=== PATIENT | male | born 2000 | race Caucasian/White ===

== ENCOUNTER 2022-12-30 22:48 | Inpatient (IN) ==
[2022-12-30 23:26] LABS: Appearance Urine Clear (Clear); Bilirubin Urine Negative (Negative); Blood Urine Negative (Negative); Color Urine Yellow; Glucose Urine UA Negative (Negative); Ketones Urine Negative (Negative); Leukocyte Esterase Urine Negative (Negative); Nitrite Urine Negative (Negative); Protein Urine Negative (Negative); Specific Gravity Urine 1.013 (1.000-1.030); Urobilinogen Urine Negative (Negative)
--- NOTE | 2022-12-30 23:29 | Emergency Department Note ---
Impression & Plan Suicidal ideation Admit to 3 S. under 302 ED Provider Note NAME: IRAJ AYON AGE: 22 SEX: Male INFORMANT: Patient and his ED PROVIDER(S): Kayleigh Grier DO CHIEF COMPLAINT: Suicidal ideation PLAN: Disposition: Admit to 3 S. on a 302 MEDICAL DECISION MAKING: This is a 22-year-old male patient with a history of anxiety who presents to the emergency department with worsening suicidal thoughts. Patient describes that he has had suicidal ideation for some time but the depression and thoughts of suicide have worsened to the point today he became quite concerned because he envision going to a remote area to complete his suicide. The patient describes feeling overwhelmed and more depressed because of his physical health. He suffers from chronic chest pain/abdominal pain thought to be related to GERD. He was fired from his job 2 weeks ago because of his depression and missing too much work. He denies any drug or alcohol use. Patient gives a history of 1 previous inpatient psychiatric stay at [facility] for an overdose of Lexapro when he was 17 years old. Patient was medically cleared here in the emergency department and he was evaluated by the ED psychiatric medical case worker who is recommending inpatient psychiatric care. While the patient was here in the emergency department, he received an email stating that he needed to have a drug test performed in the next 24 hours for possible job opportunity and he would be scheduled for a job interview. Based on this email, the patient requested discharge from the emergency department. The medical case worker explained to the patient and his that we were still quite concerned about the patient's suicidality brought him here in the first place. In reviewing the patient's medical record in [facility], it seems that the patient had recently had an inpatient psychiatric stay on December 24 for anxiety and mentions suicidal ideation at that time. Patient made no mention of this inpatient psychiatric stay for another one at [facility] when I questioned him initially. He told me of the admission to [facility] at age 17 and stated that he currently does not have any counselors/therapists and does not see a psychiatrist. I felt the patient was not forthcoming with information and was somewhat manipulative. I went back to the room to discuss the situation with the patient and his . I explained that I was genuinely concerned for the patient's safety as they presented with such significant worry and concern over his worsening suicidal ideation. I feel that he does require inpatient psychiatric care. He states that the care he received at [facility] was not helpful. He told me that if he signs into the hospital again that he would just sign out in 72 hours. I believe the patient has multiple risk factors for suicide and requires further inpatient psychiatric evaluation and care. The ED psychiatric medical case worker petitioned a 302 and I signed off on it. Care/management discussed with: ED psychiatric medical case worker Triage Nursing notes: Reviewed and agree them. Vital Signs: reviewed and unremarkable Additional History obtained from: The is at the bedside Chronic Medical/Social Conditions affecting care: Recently unemployed because of absence from work Prior /Outside records reviewed: [facility] records from recent inpatient psychiatric stay and emergency department visits. Differential Diagnosis: Mood disorder, thought disorder, suicidal ideation HPI: 22 year old Male arrives for evaluation of suicidal ideation. Patient had worsening thoughts of suicide over the past month. He takes BuSpar for his anxiety. Tonight he was thinking about how he would go to a remote location to complete his suicide. He has a history of previous suicide attempt at age 17 by overdose. His paternal grandfather killed himself. PAST MEDICAL HISTORY: Anxiety, SOCIAL HISTORY: Lives with his and 3 children, he denies drug and alcohol use. Currently unemployed HOME MEDICATIONS: See list ALLERGIES: See list VITALS: See Below PHYSICAL EXAMINATION: HEENT: Head - normocephalic and atraumatic. Pupils are equal, round, and reactive to light. Extraocular eye muscles are intact, and sclera are anicteric. Nose - moist nasal mucosa without discharge. Mouth - moist buccal mucosa. Oropharynx is nonerythematous and there is no tonsillar exudate or edema noted. Neck: Supple; no cervical lymphadenopathy noted Heart: Regular rate and rhythm. There is a normal S1 and S2 with no murmurs, clicks, or gallops appreciated. Lungs: Clear to auscultation bilaterally with no wheezes, rales, or rhonchi. Abdomen: Soft, completely nontender, nondistended, with good bowel sounds. There are no palpable pulsatile masses or hepatosplenomegaly. There is no guarding, rigidity, or rebound noted. Extremities: No evidence of cyanosis, clubbing, or edema. There are easily palpable peripheral pulses. Skin: warm and dry with good turgor and no rashes. Psych: Patient has an extremely flat affect. He appears depressed. He admits to suicidal thoughts with no specific plan. He denies drug and alcohol use. ED course: The patient was evaluated in room A-5. A complete history and physical was performed. Laboratory studies were drawn as above. Patient was medically cleared. He was evaluated by the ED psychiatric medical case worker. Past Med/Surg History Social History Smoking Status: Current every day smoker Tobacco Type: E-cigarettes / Vaping Preferred Language: Kinyarwanda Communication Ability: Effective Activities Assistant Required: No Beliefs That Will Affect Care: None Feels Safe at Home: Yes Gender Identity: Male Assistive Devices: Glasses Allergies Allergies Allergy/AdvReac Type Severity Reaction Status Date / Time trazodone Allergy Swelling Verified 12/30/22 23:16 of Lip/Tongue/Throat fluoxetine AdvReac Confusion Verified 12/30/22 23:16 methylphenidate AdvReac twitching Verified 09/12/22 22:35 [From Concerta] Home Meds Home Medications Medication Instructions Recorded Confirmed buspirone 10 mg tablet 10 mg PO BID 12/30/22 12/30/22 Results & Data (ED) Vital Signs Vital Signs - 24 hr 12/30/22 22:50 Pulse Rate 71 Respiratory Rate 18 Respiratory Effort / Characteristics Non-Labored Respiratory Depth Normal Blood Pressure 122/84 Blood Pressure Mean 96 Pulse Oximetry 99 Oxygen Delivery Method Room Air Sepsis Recent Fever Within 48 Hours No Sepsis New/Unexplained Change in Mental Status No Sepsis Action Taken by Nursing No Action Required Laboratory Data 12/30/22 23:05 12/30/22 23:05 Lab Results 12/30/22 12/30/22 12/30/22 Range/Units 23:05 23:05 23:05 WBC 8.77 (4.8-10.8) K/ul RBC 5.12 (4.70-6.10) M/uL Hgb 14.8 (14.0-18.0) g/dl Hct 43.1 (42.0-52.0) % MCV 84.2 (80.0-100.0) fL MCH 28.9 (25.0-34.0) pg MCHC 34.3 (32.0-36.0) g/dL RDW Std Deviation 37.5 (36.4-46.3) fL RDW Coeff of Jack 12.5 (11.5-14.5) % Plt Count 230 (130-400) K/uL MPV 9.6 (9.4-12.4) fL Immature Gran % (Auto) 0.1 % Neut % (Auto) 45.1 % Lymph % (Auto) 44.8 % [place] % (Auto) 7.3 % Eos % (Auto) 2.2 % Baso % (Auto) 0.5 % Neut # (Auto) 3.96 (1.40-6.50) K/uL Lymph # (Auto) 3.93 H (1.20-3.40) K/uL [place] # (Auto) 0.64 H (0.11-0.59) K/uL Eos # (Auto) 0.19 (0.00-0.50) K/uL Baso # (Auto) 0.04 (0.00-0.20) K/uL Immature Gran # (Auto) 0.01 (0.01-0.20) K/uL Sodium 138 (136-145) mmol/L Potassium 4.1 (3.5-5.1) mmol/L Chloride 104 (98-107) mmol/L Carbon Dioxide 29 (21-32) mmol/L Anion Gap 5 (3-11) BUN 12 (6-23) mg/dl Creatinine 0.90 (0.6-1.4) mg/dl Est Cr Clr Drug Dosing 127.7 ml/min Est GFR ( Amer) 139.0 ml/min Est GFR (Non-Af Amer) 120.0 ml/min BUN/Creatinine Ratio 13.3 (10-20) Glucose 95 (70-99(Fasting)) mg/dl Calcium 9.9 (8.6-10.3) mg/dl Total Bilirubin 0.4 (0.2-1.0) mg/dl AST 16 (13-39) U/L ALT 9 (7-52) U/L Alkaline Phosphatase 68 (34-104) U/L Total Protein 7.5 (6.0-8.3) gm/dl Albumin 4.9 (3.4-5.0) gm/dl Globulin 2.6 (2.5-4.0) gm/dl Albumin/Globulin Ratio 1.9 (0.9-2) TSH 3.965 (0.300-4.500) uIu/ml Urine Color Urine Appearance (Clear) Urine pH (4.5-7.5) Ur Specific [place] (1.000-1.030) Urine Protein (Negative) Urine Glucose (UA) (Negative) Urine Ketones (Negative) Urine Blood (Negative) Urine Nitrite (Negative) Urine Bilirubin (Negative) Urine Urobilinogen (Negative) Ur Leukocyte Esterase (Negative) Salicylates < 3.0 L (3.0-30) mg/dl Urine Opiates Screen (Neg) Ur Methadone, Qual (Neg) Acetaminophen < 3 L (10-30) ug/ml Urine Barbiturates (Neg) Ur Phencyclidine (PCP) (Neg) U Amphetamin/Meth Scrn (Neg) MDMA (Ecstasy) Screen (Neg) U Benzodiazepines Scrn (Neg) Ur Cocaine Metabolite (Neg) U Marijuana (THC) Screen (Neg) Ethyl Alcohol mg/dL (<10.0) mg/dl SARS-CoV-2, RNA, NAAT (NEGATIVE) 12/30/22 12/30/22 12/30/22 Range/Units 23:05 23:05 23:05 WBC (4.8-10.8) K/ul RBC (4.70-6.10) M/uL Hgb (14.0-18.0) g/dl Hct (42.0-52.0) % MCV (80.0-100.0) fL MCH (25.0-34.0) pg MCHC (32.0-36.0) g/dL RDW Std Deviation (36.4-46.3) fL RDW Coeff of Jack (11.5-14.5) % Plt Count (130-400) K/uL MPV (9.4-12.4) fL Immature Gran % (Auto) % Neut % (Auto) % Lymph % (Auto) % [place] % (Auto) % Eos % (Auto) % Baso % (Auto) % Neut # (Auto) (1.40-6.50) K/uL Lymph # (Auto) (1.20-3.40) K/uL [place] # (Auto) (0.11-0.59) K/uL Eos # (Auto) (0.00-0.50) K/uL Baso # (Auto) (0.00-0.20) K/uL Immature Gran # (Auto) (0.01-0.20) K/uL Sodium (136-145) mmol/L Potassium (3.5-5.1) mmol/L Chloride (98-107) mmol/L Carbon Dioxide (21-32) mmol/L Anion Gap (3-11) BUN (6-23) mg/dl Creatinine (0.6-1.4) mg/dl Est Cr Clr Drug Dosing ml/min Est GFR ( Amer) ml/min Est GFR (Non-Af Amer) ml/min BUN/Creatinine Ratio (10-20) Glucose (70-99(Fasting)) mg/dl Calcium (8.6-10.3) mg/dl Total Bilirubin (0.2-1.0) mg/dl AST (13-39) U/L ALT (7-52) U/L Alkaline Phosphatase (34-104) U/L Total Protein (6.0-8.3) gm/dl Albumin (3.4-5.0) gm/dl Globulin (2.5-4.0) gm/dl Albumin/Globulin Ratio (0.9-2) TSH (0.300-4.500) uIu/ml Urine Color Yellow Urine Appearance Clear (Clear) Urine pH 7.0 (4.5-7.5) Ur Specific [place] 1.013 (1.000-1.030) Urine Protein Negative (Negative) Urine Glucose (UA) Negative (Negative) Urine Ketones Negative (Negative) Urine Blood Negative (Negative) Urine Nitrite Negative (Negative) Urine Bilirubin Negative (Negative) Urine Urobilinogen Negative (Negative) Ur Leukocyte Esterase Negative (Negative) Salicylates (3.0-30) mg/dl Urine Opiates Screen Neg (Neg) Ur Methadone, Qual Neg (Neg) Acetaminophen (10-30) ug/ml Urine Barbiturates Neg (Neg) Ur Phencyclidine (PCP) Neg (Neg) U Amphetamin/Meth Scrn Neg (Neg) MDMA (Ecstasy) Screen Neg (Neg) U Benzodiazepines Scrn Neg (Neg) Ur Cocaine Metabolite Neg (Neg) U Marijuana (THC) Screen Neg (Neg) Ethyl Alcohol mg/dL < 10.0 (<10.0) mg/dl SARS-CoV-2, RNA, NAAT (NEGATIVE) 10/15/23 Range/Units 23:05 WBC (4.8-10.8) K/ul RBC (4.70-6.10) M/uL Hgb (14.0-18.0) g/dl Hct (42.0-52.0) % MCV (80.0-100.0) fL MCH (25.0-34.0) pg MCHC (32.0-36.0) g/dL RDW Std Deviation (36.4-46.3) fL RDW Coeff of Jack (11.5-14.5) % Plt Count (130-400) K/uL MPV (9.4-12.4) fL Immature Gran % (Auto) % Neut % (Auto) % Lymph % (Auto) % [place] % (Auto) % Eos % (Auto) % Baso % (Auto) % Neut # (Auto) (1.40-6.50) K/uL Lymph # (Auto) (1.20-3.40) K/uL [place] # (Auto) (0.11-0.59) K/uL Eos # (Auto) (0.00-0.50) K/uL Baso # (Auto) (0.00-0.20) K/uL Immature Gran # (Auto) (0.01-0.20) K/uL Sodium (136-145) mmol/L Potassium (3.5-5.1) mmol/L Chloride (98-107) mmol/L Carbon Dioxide (21-32) mmol/L Anion Gap (3-11) BUN (6-23) mg/dl Creatinine (0.6-1.4) mg/dl Est Cr Clr Drug Dosing ml/min Est GFR ( Amer) ml/min Est GFR (Non-Af Amer) ml/min BUN/Creatinine Ratio (10-20) Glucose (70-99(Fasting)) mg/dl Calcium (8.6-10.3) mg/dl Total Bilirubin (0.2-1.0) mg/dl AST (13-39) U/L ALT (7-52) U/L Alkaline Phosphatase (34-104) U/L Total Protein (6.0-8.3) gm/dl Albumin (3.4-5.0) gm/dl Globulin (2.5-4.0) gm/dl Albumin/Globulin Ratio (0.9-2) TSH (0.300-4.500) uIu/ml Urine Color Urine Appearance (Clear) Urine pH (4.5-7.5) Ur Specific [place] (1.000-1.030) Urine Protein (Negative) Urine Glucose (UA) (Negative) Urine Ketones (Negative) Urine Blood (Negative) Urine Nitrite (Negative) Urine Bilirubin (Negative) Urine Urobilinogen (Negative) Ur Leukocyte Esterase (Negative) Salicylates (3.0-30) mg/dl Urine Opiates Screen (Neg) Ur Methadone, Qual (Neg) Acetaminophen (10-30) ug/ml Urine Barbiturates (Neg) Ur Phencyclidine (PCP) (Neg) U Amphetamin/Meth Scrn (Neg) MDMA (Ecstasy) Screen (Neg) U Benzodiazepines Scrn (Neg) Ur Cocaine Metabolite (Neg) U Marijuana (THC) Screen (Neg) Ethyl Alcohol mg/dL (<10.0) mg/dl SARS-CoV-2, RNA, NAAT NEGATIVE (NEGATIVE) Discharge Plan Visit Data Chief Complaint: Mental Health Evaluation Stated Complaint: MENTAL HEALTH CRISIS ED Provider: Kayleigh Grier Discharge Problem: Suicidal ideation Patient Disposition: Admitted As Inpatient Discharge Instructions Interventions: ED Discharge Assessment Last Done: 12/31/22 04:18
[2022-12-30 23:32] LABS: Basophils # (auto) 0.04 K/uL (0.00-0.20); Basophils % (auto) 0.5 %; Eosinophils # (auto) 0.19 K/uL (0.00-0.50); Eosinophils % (auto) 2.2 %; Hematocrit (blood only) 43.1 % (42.0-52.0); Hemoglobin 14.8 g/dl (14.0-18.0); Immature Granulocytes # (auto) 0.01 K/uL (0.01-0.20); Immature Granulocytes % (auto) 0.1 %; Lymphocytes # (auto) 3.93 K/uL (1.20-3.40); Lymphocytes % (auto) 44.8 %; Mean Corpuscular Hemoglobin 28.9 pg (25.0-34.0); Mean Corpuscular Hgb Conc 34.3 g/dL (32.0-36.0); Mean Corpuscular Volume 84.2 fL (80.0-100.0); Mean Platelet Volume 9.6 fL (9.4-12.4); Monocytes # (auto) 0.64 K/uL (0.11-0.59); Monocytes % (auto) 7.3 %; Neutrophils # (auto) 3.96 K/uL (1.40-6.50); Neutrophils % (auto) 45.1 %; Platelet Count 230 K/uL (130-400); RDW Coefficient of Variation 12.5 % (11.5-14.5); RDW Standard Deviation 37.5 fL (36.4-46.3); Red Blood Count 5.12 M/uL (4.70-6.10); White Blood Count 8.77 K/ul (4.8-10.8)
[2022-12-30 23:46] LABS: Albumin Globulin Ratio 1.9 (0.9-2); Albumin Level 4.9 gm/dl (3.4-5.0); BUN Creatinine Ratio 13.3 (10-20); Bilirubin,Total 0.4 mg/dl (0.2-1.0); Calcium 9.9 mg/dl (8.6-10.3); Creatinine Clr Calc Pharmacy 127.7 ml/min; Globulin 2.6 gm/dl (2.5-4.0); Potassium 4.1 mmol/L (3.5-5.1); Total Protein 7.5 gm/dl (6.0-8.3)
[2022-12-30 23:58] LABS: Thyroid Stimulating Hormone 3.965 uIu/ml (0.300-4.500)
[2022-12-31 00:12] LABS: Amphetamines+Metham, Urine Neg (Neg); Barbiturates, Urine Neg (Neg); Benzodiazepine, Urine Neg (Neg); Cocaine, Urine Neg (Neg); MDMA (Ecstacy), Urine Neg (Neg); Methadone, Urine Neg (Neg); Opiate, Urine Neg (Neg); Phencyclidine, Urine Neg (Neg)
[2022-12-31 00:51] LABS: Acetaminophen < 3 ug/ml (10-30); Salicylate < 3.0 mg/dl (3.0-30)
[2022-12-31] MEDS ORDERED: ACETAMINOPHEN 325 MG TAB PO PRN (04:43)
[2022-12-31] MEDS ORDERED: MAGNESIUM HYDROXIDE SUSP 30 ML UDC PO PRN (04:43)
[2022-12-31] MEDS ORDERED: SODIUM CHLORIDE 0.65% NA SOLN 45 ML (OCEAN) PRN (04:43)
[2022-12-31] MEDS ORDERED: ALUMINUM/MAGNESIUM SUSP 30 ML UDC PO PRN (04:43)
[2022-12-31] MEDS ORDERED: hydrOXYzine HCl 25 MG TAB PO PRN ×2 (04:43)
[2022-12-31] MEDS ORDERED: BISMUTH SUBSALICYLATE LIQD 236 ML PO PRN (04:43)
--- NOTE | 2022-12-31 08:45 | History & Physical ---
Date of Service December 31, 2022 Impression / Recommendations Impression Iraj is a 22 year old man with a history of ADHD, anxiety and depression with worsening stomach issues leading to >45 lbs of weight loss in recent months, daily panic attacks and inability to function who was admitted for severe anxiety, depression and SI. Diagnostically consistent with unspecified anxiety and depression with differential including MDD with anxious distress, LANCE with panic attacks vs mood symptoms secondary to underlying medical condition vs prominent somatic component to his underlying anxiety symptoms. He also wonders about component of ADHD leading to worsened anxious thoughts. He has many modifiable and non-modifiable risk factors placing him at increased risk for suicide especially in the context of his ongoing pain/GI symptoms and severe anxiety with panic attacks/psychic distress with SI during these times. Discussed medication treatment options in detail including SNRI, clonidine, guanfacine, gabapentin, mirtazapine, buspirone, Vistaril, propranolol, Strattera. Discussed risks, benefits and alternatives. Patient would like increase his dose and consented to Buspar for anxiety as well as possibly Strattera trial for ADHD. Given his prior side effects/adverse reactions to low doses of medication suspect that he may be a slow metabolizer and reviewed goal of starting with low dose for any new medication trials which he is in agreement with. Reviewed side effects including but not limited to: GI, JJ, dizziness, fatigue with Buspar as well as irritability, cardiovascular events, hepatic changes with Strattera. Overall I spent a total of 75 minutes for this admission including review of chart records, review of labwork, direct evaluation of the patient, counseling the patient, ordering medication, risk assessment, discussion with the psychiatric liason RN and documentation in the electronic health record. (1) Suicidal ideation: (2) Depression, unspecified: (3) Generalized anxiety disorder with panic attacks: (4) Weight loss, unintentional: Plan 12/31/2022: The patient was admitted to the [facility] ([facility] inpatient mental health unit) on q15 min checks (behavioral with suicide precautions) for safety. The patient will participate in group, recreational, and milieu therapies and will be offered additional individual and family sessions as clinically appropriate. -Increase Buspar to 20mg BID -Consider starting Strattera 20mg daily tomorrow with goal to eventual titrate to 40mg and then if tolerated to 80mg daily Inventory Assets Strengths: supportive relationships, young children, hard worker Needs: safety and stabilization, medication adjustment, additional coping skills, increased outpatient services Suicide Risk Level Suicide Risk Level: High-Moderate (q15 min suicide checks) (severe anxiety and d epression with SI prior to admission but feels safe in the hospital, able to safety contract and agrees to let nursing/staff know should they develop plan, intent or feel unable to remain safe.) Suicide Risk Level Comments: Risk Factors Assessment Male: Yes : Yes Do You Have Access To A Gun?: Yes (one gun, locked in a safe that he and his have access to ) Health Problems: Yes Mental Health Diagnoses: Yes Substance Use Disorders: No Previous Attempt: Yes Family History of Suicide: Yes Previous Psychiatric Hospitalization: Yes Protective Factors Assessment : Yes Responsible for Young Children: Yes Employed: No (fired due to missing work) Stable Relationships: Yes Supportive Family: Yes () Psychiatric History Identifying Data IRAJ AYON is a 22-year-old man who currently lives in [place] with his , 3 yo twin boys and 4 mo old boy, has a history of ADHD, depression and anxiety, and was admitted on 12/31/22 03:55 on a 302 involuntary commitment for worsening depression and SI with difficulty engaging in safety planning. Chief Complaint "I lost my job because of my depression and anxiety". History of Present Illness Iraj was admitted for worsening depression and SI with plans of possibly going somewhere secluded to and with access to guns at home. Recent stressor of job loss, he denies this has caused any additional financial stress, as well as worsening stomach issues over the last year. He's lost about 45 lbs since July due to the stomach issues and he feels this caused his anxiety because prior to this he never struggled with anxiety. Describes having frequent panic attacks with heart racing that are often set off by stomach pain and indigestion. He feels the anxiety has spiraled to the point that it causes severe episodes of depression that typically last a few hours for "racing thoughts" and will then lead to thoughts of suicide. Further recent history reviewed as documented by ED CM on 12/30/2022: " Accompanied Dr. Grier to meet with patient and complete brief mental health assessment. Patients remained in room with patients consent. Iraj stated he has been having thoughts of suicide for months. He stated thoughts "are not getting any better." Iraj stated his anxiety "is really bad." He stated he came to [facility] because he was "having really bad thoughts tonight." He stated he was thinking of ways to end his life. He stated he didn't come up with a method of suicide but he did disclose that he thought about where he would do it - "a secluded area." Iraj stated he attempted suicide when he was 17 years old by ingesting a handful of Lexapro. He stated he received inpatient treatment at [facility] for suicide attempt. Iraj denies any current outpatient services. His stated he is scheduled to see a psychiatrist tomorrow at [facility] in [place] and has an appointment with a therapist in [place]. Iraj stated he is prescribed Buspar by his PCP. Iraj stated he was fired from his job two weeks ago due to not showing up for work because of depression. He stated he has been struggling with "stomach issues" for some time. He stated he was diagnosed with GERD but continues to experience chest pain, stomach upset, and indigestion. Iraj has lost a significant amount of weight since the end of July 2022 when he weighed 220lbs. His biological grandfather by suicide. He has three children at home - 3 year old twins and a 4 month old. He denies alcohol or substance use. He denies any legal issues." He's been taking buspirone 10mg BID since his recent discharge from [facility] last week. He's finding this helpful so far in that no side effects, but no real benefits. Past Psychiatric History Current Psychiatric Diagnosis: Depression; Anxiety; ADHD Outpatient Services: [facility] for psychiatry (hasn't started yet), was to start with new therapist in [place] today Previous Psych Admissions: multiple-most recently last week at [facility] ("I was on Prozac and I couldn't function") signed 72 hour notice; [facility] 2-3 months ago for anxiety (fluoxetine started and Vistaril 50mg prn); [facility] at age 17 following suicide attempt Do You Have Access To A Gun?: Yes (one gun, locked in a safe that he and his have access to ) History of Previous Suicide Attempt: Yes (age 17) Describe Attempts in the Past: overdose of escitalopram Past Medication Trials: Vyvanse during childhood for ADHD, methylphenidate in the past caused twitching fluoxetine caused confusion was on 20mg, escitalopram (caused SI), zoloft (caused fatigue), trazodone caused swelling of throat/tongue Wellbutrin (caused headaches) Vistaril (works ok but makes him feel tired) no hx Effexor or Cymbalta no hx mirtazapine no hx gabapentin, propranolol, clonidine or guanfacine Past Head Trauma/Neuro History History of Concussion/Seizure: No Allergies Allergy/AdvReac Type Severity Reaction Status Date / Time trazodone Allergy Swelling Verified 12/30/22 23:16 of Lip/Tongue/Throat fluoxetine AdvReac Confusion Verified 12/30/22 23:16 methylphenidate AdvReac twitching Verified 09/12/22 22:35 [From Concerta] Home Medications Medication Instructions Recorded Confirmed Type buspirone 10 mg tablet 10 mg PO BID 12/30/22 12/30/22 History sucralfate 1 gram tablet 1 g PO QID 12/31/22 12/31/22 History Family History Family History of: Suicide Completion Family Mental Health History Comment: paternal grandfather completed suicide Alcohol History Hx of Alcohol Use Over the Past 12 Months: No AUDIT Total Score: 0 Smoking Use Have You Smoked or Used Tobacco Products in the Last 30 Days: Yes tobacco type: e-cigarettes Smoking Status: Current every day smoker (smoke, vape, chew) Substance History Hx of Prescription Med Misuse Over the Past 12 Months: No Hx of Over the Counter Med Misuse Over the Past 12 Months: No Hx of Inhalent Misuse Over the Past 12 Months: No Hx of Organic Substance Use Over the Past 12 Months: No Hx of Illegal Substances/Street Drug Use Over Past 12 Months: No Problems as a Result of Past Substance Use: None Identified Personal History Living Arrangements: Home Highest Grade Completed: Vocational Training ([employer]) Employment Status: Unemployed Marital Status: Number Of Children: 3-3 yo twins and 4 mo old Beliefs That Will Affect Care: None Current Legal Problems: No Hx Legal Problems: Yes (eviction case in 2019 but resolved) Hx Traumatic Life Events: No Patient History Surgical History (Updated 12/31/22 @ 11:39 by Caty Davis MD) S/P cholecystectomy ~August 2022 Social History Smoking Status: Current every day smoker (smoke, vape, chew) Tobacco Type: E-cigarettes / Vaping Preferred Language: Panamanian Communication Ability: Effective Vacuum Conditioner Operator Required: No Beliefs That Will Affect Care: None Feels Safe at Home: Yes Gender Identity: Male Assistive Devices: Glasses Review of Systems Review of Systems: All systems reviewed & are unremarkable except as noted in HPI & below (bilateral stomach/rib pain, indigestion) Physical Exam Psychiatric: Orientation: alert and oriented x 3 Apperance: appropriately dressed and appropriately groomed Eye Contact: good eye contact Motor Behavior: no abnormal motor movements Speech: normal rate/rhythm/volume of speech Affect: + depressed affect and + anxious affect Mood: + depressed mood and + anxious mood Thought Process: goal directed thought process Thought Content: reality based without delusions Suicidal Thoughts: denies suicidal plan (none for hospital) and denies suicidal intent; + reports suicidal thoughts (intermittent thoughts ) Homicidal Thoughts: denies homicidal thoughts Hallucinations: no auditory hallucinations and no visual hallucina tions Cognition: recent memory grossly intact, remote memory grossly intact, attention grossly intact and language grossly intact Estimated Intelligence: consistent with education level Insight: + limited insight Judgment: + limited judgement Vital Signs (Past 24 Hours): Last Vital Signs Temp 36.6 C 12/31/22 04:51 Pulse 60 12/31/22 04:51 Resp 16 12/31/22 04:51 BP 102/64 12/31/22 04:51 Pulse Ox 99 12/30/22 22:50 O2 Del Method Room Air 12/30/22 22:50 Exam Statement: A physical exam was performed in the ED by Dr. Grier for the purposes of medical clearance. I accept that physical as correct and adequate for the purposes of the inpatient physical exam. Results & Data ([facility]) Laboratory Results Laboratory Results - last 24 hr 12/30/22 12/30/22 12/30/22 23:05 23:05 23:05 WBC 8.77 RBC 5.12 Hgb 14.8 Hct 43.1 MCV 84.2 MCH 28.9 MCHC 34.3 RDW Std Deviation 37.5 RDW Coeff of Jack 12.5 Plt Count 230 MPV 9.6 Immature Gran % (Auto) 0.1 Neut % (Auto) 45.1 Lymph % (Auto) 44.8 Woodward % (Auto) 7.3 Eos % (Auto) 2.2 Baso % (Auto) 0.5 Neut # (Auto) 3.96 Lymph # (Auto) 3.93 H Woodward # (Auto) 0.64 H Eos # (Auto) 0.19 Baso # (Auto) 0.04 Immature Gran # (Auto) 0.01 Sodium 138 Potassium 4.1 Chloride 104 Carbon Dioxide 29 Anion Gap 5 BUN 12 Creatinine 0.90 Est Cr Clr Drug Dosing 127.7 Est GFR ( Amer) 139.0 Est GFR (Non-Af Amer) 120.0 BUN/Creatinine Ratio 13.3 Glucose 95 Calcium 9.9 Total Bilirubin 0.4 AST 16 ALT 9 Alkaline Phosphatase 68 Total Protein 7.5 Albumin 4.9 Globulin 2.6 Albumin/Globulin Ratio 1.9 TSH 3.965 Urine Color Urine Appearance Urine pH Ur Specific [place] Urine Protein Urine Glucose (UA) Urine Ketones Urine Blood Urine Nitrite Urine Bilirubin Urine Urobilinogen Ur Leukocyte Esterase Salicylates < 3.0 L Urine Opiates Screen Ur Methadone, Qual Acetaminophen < 3 L Urine Barbiturates Ur Phencyclidine (PCP) U Amphetamin/Meth Scrn MDMA (Ecstasy) Screen U Benzodiazepines Scrn Ur Cocaine Metabolite U Marijuana (THC) Screen Ethyl Alcohol mg/dL SARS-CoV-2, RNA, NAAT 12/30/22 12/30/22 12/30/22 23:05 23:05 23:05 WBC RBC Hgb Hct MCV MCH MCHC RDW Std Deviation RDW Coeff of Jack Plt Count MPV Immature Gran % (Auto) Neut % (Auto) Lymph % (Auto) Woodward % (Auto) Eos % (Auto) Baso % (Auto) Neut # (Auto) Lymph # (Auto) Woodward # (Auto) Eos # (Auto) Baso # (Auto) Immature Gran # (Auto) Sodium Potassium Chloride Carbon Dioxide Anion Gap BUN Creatinine Est Cr Clr Drug Dosing Est GFR ( Amer) Est GFR (Non-Af Amer) BUN/Creatinine Ratio Glucose Calcium Total Bilirubin AST ALT Alkaline Phosphatase Total Protein Albumin Globulin Albumin/Globulin Ratio TSH Urine Color Yellow Urine Appearance Clear Urine pH 7.0 Ur Specific Highland 1.013 Urine Protein Negative Urine Glucose (UA) Negative Urine Ketones Negative Urine Blood Negative Urine Nitrite Negative Urine Bilirubin Negative Urine Urobilinogen Negative Ur Leukocyte Esterase Negative Salicylates Urine Opiates Screen Neg Ur Methadone, Qual Neg Acetaminophen Urine Barbiturates Neg Ur Phencyclidine (PCP) Neg U Amphetamin/Meth Scrn Neg MDMA (Ecstasy) Screen Neg U Benzodiazepines Scrn Neg Ur Cocaine Metabolite Neg U Marijuana (THC) Screen Neg Ethyl Alcohol mg/dL < 10.0 SARS-CoV-2, RNA, NAAT 12/30/22 23:05 WBC RBC Hgb Hct MCV MCH MCHC RDW Std Deviation RDW Coeff of Jack Plt Count MPV Immature Gran % (Auto) Neut % (Auto) Lymph % (Auto) Woodward % (Auto) Eos % (Auto) Baso % (Auto) Neut # (Auto) Lymph # (Auto) Woodward # (Auto) Eos # (Auto) Baso # (Auto) Immature Gran # (Auto) Sodium Potassium Chloride Carbon Dioxide Anion Gap BUN Creatinine Est Cr Clr Drug Dosing Est GFR ( Amer) Est GFR (Non-Af Amer) BUN/Creatinine Ratio Glucose Calcium Total Bilirubin AST ALT Alkaline Phosphatase Total Protein Albumin Globulin Albumin/Globulin Ratio TSH Urine Color Urine Appearance Urine pH Ur Specific [place] Urine Protein Urine Glucose (UA) Urine Ketones Urine Blood Urine Nitrite Urine Bilirubin Urine Urobilinogen Ur Leukocyte Esterase Salicylates Urine Opiates Screen Ur Methadone, Qual Acetaminophen Urine Barbiturates Ur Phencyclidine (PCP) U Amphetamin/Meth Scrn MDMA (Ecstasy) Screen U Benzodiazepines Scrn Ur Cocaine Metabolite U Marijuana (THC) Screen Ethyl Alcohol mg/dL SARS-CoV-2, RNA, NAAT NEGATIVE Current Inpatient Medications Current Inpatient Medications: Current Inpatient Medications Acetaminophen (Acetaminophen 325 Mg Tab) 650 mg PO Q4H PRN PRN Reason: Headache or Minor Fever Stop: 01/30/23 04:42 Al Hydrox/Mg Hydrox/Simethicone (Aluminum/Magnesium Susp 30 Ml Udc) 30 ml PO Q4H PRN PRN Reason: GI Upset Stop: 01/30/23 04:42 Bismuth Subsalicylate (Bismuth Subsalicylate Liqd 236 Ml) 15 ml PO PRN PRN PRN Reason: Loose Stool Stop: 01/30/23 04:42 Hydroxyzine HCl (Hydroxyzine Hcl 25 Mg Tab) 50 mg PO HSZ PRN PRN Reason: Insomnia Stop: 01/30/23 04:42 Hydroxyzine HCl (Hydroxyzine Hcl 25 Mg Tab) 25 mg PO Q4H PRN PRN Reason: Anxiety Stop: 01/30/23 04:42 Magnesium Hydroxide (Magnesium Hydroxide Susp 30 Ml Udc) 30 ml PO DAILY PRN PRN Reason: Constipation Stop: 01/30/23 04:42 Miscellaneous (Remove Nicoderm Patch) 1 each N/A DAILY@0859 [facility] Stop: 01/31/23 08:58 Nicotine (Nicotine 14 Mg/24 Hr Patch) 14 mg TD QAM [facility] Stop: 01/30/23 08:59 Nicotine Polacrilex (Nicotine Polacrilex 2 Mg Gum) 1 piece MT PRN PRN PRN Reason: Nicotine Withdrawal Symptoms Stop: 01/30/23 04:48 Sodium Chloride (Sodium Chloride 0.65% Na Soln 45 Ml ([place])) 1 - 2 sprays NA PRN PRN PRN Reason: Nasal Dryness/Congestion Stop: 01/30/23 04:42
[2022-12-31] MEDS ORDERED: NICOTINE 14 MG/24 HR PATCH TD SCH (09:00)
[2022-12-31] MEDS ORDERED: busPIRone 5 MG TAB PO SCH (12:05)
[2022-12-31] MEDS: NICOTINE 21 MG/24 HR TDSY TD SCH (12:13)
[2022-12-31] MEDS: SUCRALFATE 1 GM TAB PO SCH ×3 (13:40→21:15)
[2022-12-31] MEDS: NICOTINE POLACRILEX 2 MG GUM MT PRN (18:36)
[2022-12-31] MEDS: busPIRone 5 MG TAB PO SCH (21:15)
[2023-01-01] MEDS: ATOMOXETINE HCL 10 MG CAPSULE PO SCH (09:01)
[2023-01-01] MEDS: SUCRALFATE 1 GM TAB PO SCH ×4 (09:01→21:31)
[2023-01-01] MEDS: NICOTINE 21 MG/24 HR TDSY TD SCH (09:02)
[2023-01-01] MEDS: busPIRone 5 MG TAB PO SCH (09:02)
--- NOTE | 2023-01-01 09:13 | Psychiatric Progress Note ---
Date of Service January 01, 2023 Impression / Recommendations Impression Iraj is a 22 year old man with a history of ADHD, anxiety and depression with worsening stomach issues leading to >45 lbs of weight loss in recent months, daily panic attacks and inability to function who was admitted for severe anxiety, depression and SI. Diagnostically consistent with unspecified anxiety and depression with differential including MDD with anxious distress, LANCE with panic attacks vs mood symptoms secondary to underlying medical condition vs prominent somatic component to his underlying anxiety symptoms. He also wonders about component of ADHD leading to worsened anxious thoughts. He has many modifiable and non-modifiable risk factors placing him at increased risk for suicide especially in the context of his ongoing pain/GI symptoms and severe anxiety with panic attacks/psychic distress with SI during these times. 01/01/2023: Mood improving, less anxiety today. Having some side effects to Buspar so prefers to reduce dose slightly with plan for future titration. Tolerating initial dose of Strattera. Overall, I spent a total of 25 minutes with this case including review of chart records, direct evaluation of the patient at bedside, counseling the patient, discussion during interdisciplinary treatment rounds, risk assessment, and documentation in the electronic health record. (1) Suicidal ideation: (2) Depression, unspecified: (3) Generalized anxiety disorder with panic attacks: (4) Weight loss, unintentional: Plan 01/01/2023: Decrease Buspar to 15mg BID. Continue Strattera. 12/31/2022: The patient was admitted to the [facility] ([facility] mental health unit) on q15 min checks (behavioral with suicide precautions) for safety. The patient will participate in group, recreational, and milieu therapies and will be offered additional individual and family sessions as clinically appropriate. -Increase Buspar to 20mg BID -Consider starting Strattera 20mg daily tomorrow with goal to eventual titrate to 40mg and then if tolerated to 80mg daily Inventory Assets Strengths: supportive relationships, young children, hard worker Needs: safety and stabilization, medication adjustment, additional coping skills, increased outpatient services Suicide Risk Level Suicide Risk Level: High-Moderate (q15 min suicide checks) (severe anxiety and depression with SI prior to admission but feels safe in the hospital, able to safety contract and agrees to let nursing/staff know should they develop plan, intent or feel unable to remain safe.) Suicide Risk Level Comments: Risk Factors Assessment Male: Yes : Yes Do You Have Access To A Gun?: Yes (one gun, locked in a safe that he and his have access to ) Health Problems: Yes Mental Health Diagnoses: Yes Substance Use Disorders: No Previous Attempt: Yes Family History of Suicide: Yes Previous Psychiatric Hospitalization: Yes Protective Factors Assessment : Yes Responsible for Young Children: Yes Employed: No (fired due to missing work) Stable Relationships: Yes Supportive Family: Yes () Interval History Identifying Information IRAJ AYON is a 22-year-old man who currently lives in [place] with his , 3 yo twin boys and 4 mo old boy, has a history of ADHD, depression and anxiety, and was admitted on 12/31/22 03:55 on a 302 involuntary commitment for worsening depression and SI with difficulty engaging in safety planning. Chief Complaint "I didn't sleep real well but that's typical for me in the hospital". Review of Systems Sleep Information Total Hours of Sleep: 6.5 Meal Information Percent Meal Consumed - Breakfast: 0 Percent Meal Consumed - Lunch: 50 Percent Meal Consumed - Dinner: 100 Subjective Subjective Patient was seen & assessed and interval progress reviewed with treatment team nursing and social work. Attending groups, interactive with peers. Still with intermittent anxiety but denies any SI today. Tolerating first dose of Strattera. Had headaches with each of the higher doses of Buspar so far, wonders about going down to 15mg BID. Stomach has been "ok" today. Reports dry eyes since he took fluoxetine at previous hospitalization that has now lingered for ~1 week. Reviewed possibility of prolonged side effects from fluoxetine half- life/washout vs from dry air in the hospital vs from buspar mild anticholinergic effects. He feels the side effect is tolerable for now. Future-oriented about upcoming GI procedure on . Wonders about impact of how when his heart starts to race he then develops more anxiety and vice versa. Discussed mindfulness practices and exercise to help with this. He reports also trying to reassure himself given that he's had many prior EKGs and normal cardiac workups. Physical Exam Psychiatric Orientation: alert and oriented x 3 Apperance: appropriately dressed and appropriately groomed Eye Contact: good eye contact Motor Behavior: no abnormal motor movements Speech: normal rate/rhythm/volume of speech Affect: + anxious affect Mood: + anxious mood Thought Process: goal directed thought process Thought Content: reality based without delusions Suicidal Thoughts: denies suicidal thoughts, denies suicidal plan and denies suicidal intent Homicidal Thoughts: denies homicidal thoughts Hallucinations: no auditory hallucinations and no visual hallucinations Cognition: recent memory grossly intact, remote memory grossly intact, attention grossly intact and language grossly intact Estimated Intelligence: consistent with education level Insight: + fair insight Judgment: + fair judgement Vital Signs (Past 24 Hours) Last Vital Signs Temp 36.7 C 01/01/23 06:40 Pulse 80 01/01/23 06:41 Resp 16 01/01/23 06:40 BP 125/77 01/01/23 06:41 Pulse Ox 99 12/30/22 22:50 O2 Del Method Room Air 12/30/22 22:50 Results & Data ([facility]) Current Inpatient Medications Current Inpatient Medications: Current Inpatient Medications Acetaminophen (Acetaminophen 325 Mg Tab) 650 mg PO Q4H PRN PRN Reason: Headache or Minor Fever Stop: 01/30/23 04:42 Al Hydrox/Mg Hydrox/Simethicone (Aluminum/Magnesium Susp 30 Ml Udc) 30 ml PO Q4H PRN PRN Reason: GI Upset Stop: 01/30/23 04:42 Atomoxetine HCl (Atomoxetine Hcl 10 Mg Capsule) 20 mg PO QAM [facility] Stop: 01/31/23 08:59 Last Admin: 01/01/23 09:01 Dose: 20 mg Bismuth Subsalicylate (Bismuth Subsalicylate Liqd 236 Ml) 15 ml PO PRN PRN PRN Reason: Loose Stool Stop: 01/30/23 04:42 Buspirone HCl (Buspirone 5 Mg Tab) 20 mg PO BID SHAHID Stop: 01/30/23 20:59 Last Admin: 01/01/23 09:02 Dose: 20 mg Hydroxyzine HCl (Hydroxyzine Hcl 25 Mg Tab) 50 mg PO HSZ PRN PRN Reason: Insomnia Stop: 01/30/23 04:42 Hydroxyzine HCl (Hydroxyzine Hcl 25 Mg Tab) 25 mg PO Q4H PRN PRN Reason: Anxiety Stop: 01/30/23 04:42 Magnesium Hydroxide (Magnesium Hydroxide Susp 30 Ml Udc) 30 ml PO DAILY PRN PRN Reason: Constipation Stop: 01/30/23 04:42 Miscellaneous (Remove Nicoderm Patch) 1 each N/A DAILY@0859 [facility] Stop: 01/31/23 08:58 Last Admin: 01/01/23 09:01 Dose: 1 each Nicotine (Nicotine 21 Mg/24 Hr Tdsy) 21 mg TD QAM [facility] Stop: 01/30/23 11:44 Last Admin: 01/01/23 09:02 Dose: 21 mg Nicotine Polacrilex (Nicotine Polacrilex 2 Mg Gum) 1 piece MT PRN PRN PRN Reason: Nicotine Withdrawal Symptoms Stop: 01/30/23 04:48 Last Admin: 12/31/22 18:36 Dose: 1 piece Sodium Chloride (Sodium Chloride 0.65% Na Soln 45 Ml ([place])) 1 - 2 sprays NA PRN PRN PRN Reason: Nasal Dryness/Congestion Stop: 01/30/23 04:42 Sucralfate (Sucralfate 1 Gm Tab) 1 gm PO ACHS [facility] Stop: 01/30/23 11:59 Last Admin: 01/01/23 09:01 Dose: 1 gm Mental Health & Subst Abuse Tx Therapist Name of Therapist: Pat Rudd - 1st appt today Blanker Press Operator Name of Blanker Press Operator: None
[2023-01-01] MEDS: NICOTINE POLACRILEX 2 MG GUM MT PRN ×3 (14:30→20:54)
[2023-01-01] MEDS: busPIRone 15 MG TAB PO SCH (21:31)
--- NOTE | 2023-01-02 09:03 | Discharge Summary ---
Date of Service January 02, 2023 History of Present Illness Bryan was admitted for worsening depression and SI with plans of possibly going somewhere secluded to and with access to guns at home. Recent stressor of job loss, he denies this has caused any additional financial stress, as well as worsening stomach issues over the last year. He's lost about 45 lbs since July due to the stomach issues and he feels this caused his anxiety because prior to this he never struggled with anxiety. Describes having frequent panic attacks with heart racing that are often set off by stomach pain and indigestion. He feels the anxiety has spiraled to the point that it causes severe episodes of depression that typically last a few hours for "racing thoughts" and will then lead to thoughts of suicide. Further recent history reviewed as documented by ED CM on 12/30/2022: " Accompanied Dr. Grier to meet with patient and complete brief mental health assessment. Patients remained in room with patients consent. Bryan stated he has been having thoughts of suicide for months. He stated thoughts "are not getting any better." Bryan stated his anxiety "is really bad." He stated he came to ED tonight because he was "having really bad thoughts tonight." He stated he was thinking of ways to end his life. He stated he didn't come up with a method of suicide but he did disclose that he thought about where he would do it - "a secluded area." Bryan stated he attempted suicide when he was 17 years old by ingesting a handful of Lexapro. He stated he received inpatient treatment at [facility] for suicide attempt. Bryan denies any current outpatient services. His stated he is scheduled to see a psychiatrist tomorrow at [facility] in [place] and has an appointment with a therapist in [place]. Bryan stated he is prescribed Buspar by his PCP. Bryan stated he was fired from his job two weeks ago due to not showing up for work because of depression. He stated he has been struggling with "stomach issues" for some time. He stated he was diagnosed with GERD but continues to experience chest pain, stomach upset, and indigestion. Bryan has lost a significant amount of weight since the end of July 2022 when he weighed 220lbs. His biological grandfather by suicide. He has three children at home - 3 year old twins and a 4 month old. He denies alcohol or substance use. He denies any legal issues." He's been taking buspirone 10mg BID since his recent discharge from [facility] last week. He's finding this helpful so far in that no side effects, but no real benefits. Physical Exam Vital Signs (Past 24 Hours) Last Vital Signs Temp 36.8 C 01/02/23 06:36 Pulse 106 H 01/02/23 06:36 Resp 16 01/02/23 06:36 BP 125/78 01/02/23 06:36 Pulse Ox 99 12/30/22 22:50 O2 Del Method Room Air 12/30/22 22:50 See admission H&P and DOD summary. Principal Diagnosis Unspecified depressive disorder, Generalized anxiety disorder with panic attacks Psychiatric Data See daily stay summary. In short, patient was engaged with the social/therapeutic milieu of the unit, safety was maintained and the patient was cooperative with care. Medication changes included increase of buspar to 15mg BID for LANCE and initiation of Strattera 20mg daily for ADHD and they tolerated this well. Buspar and Strattera can be further titrated in the future based on tolerability. A family session was held and safety plan was completed prior to discharge. He actively participated in safety planning and in discussions about ways to seek support and recognizing warning signs and utilizing coping skills. Reviewed mobile apps that could be used for additional ways to have their safety plan and contacts easily available should thoughts of SI re-emerge in the future. Reviewed importance of seeking emergency care should SI intensify, worsen or s hould they feel unsafe in the future which they agree to do. On the day of discharge he stated his mood was "ready to go, a little anxious but I have more ways to deal with it" and remained future-oriented including seeing his family, having a surgical procedure tomorrow, future surgery, getting back to work and engaging in aftercare appointments for psychiatry and therapy and case management. Day of Discharge Assessment Today the patient voices readiness for discharge. They note improvement in mood and anxiety. They deny thoughts of harm to self or others. Thoughts remain organized and they are clinically improved from admission. There is no evidence of psychosis. They improved in the hospital with support and medication adjustments. They agree to take medications as prescribed and keep follow-up appointments. At the time of the discharge they are deemed to be stable and appropriate for outpatient level of care. They are not deemed to be at imminent risk of harm to self or others. They are aware of emergency and crisis services. Knows to call 911 or go to nearest emergency care center if in a crisis which cannot be handled as an outpatient. Overall, I spent a total of 40 minutes with this discharge including review of chart records, direct evaluation of the patient, counseling the patient, discussion during interdisciplinary treatment rounds, risk assessment, discharge medication orders, and documentation in the electronic health record. Transition of Care Transition Of Care Record: was reviewed with the patient Advance Directives Advance Directives Information Provided: Yes Advance Directives: No Mental Health Advance Directive: No Advance Directives on File: No Living Will: No Power of Assembly Worker: No Advance Directives Reason:: Declines as Mental Health Visit. Suicide Risk Level Suicide Risk Level Comments: Acute risk is low given improvement in mood and denial of SI, lack of access to lethal means, hopefulness, decrease of anxiety. Chronic risk is moderate given some non-modifiable risk factors: psychiatric co-morbid diagnoses, periods of impulsivity, prior attempt, ongoing medical issues, prior psychiatric hospitalizations, family history of by suicide, but also with protective factors including: good social support, sense of responsibility to family and social supports, outpatient care in place, positive coping skills, positive problem solving, capacity to establish therapeutic alliance, willingness to engage with treatment, and capacity for self-observation. Counseled on ways to reduce acute and chronic risk including engaging with outpatient providers, using safety plan if needed, utilizing supports, taking medication, and using coping skills. Modifiable risk factors of SI and depression were addressed during hospitalization through development of new coping skills, family meeting, safety planning, and medication adjustments. Risk Factors Assessment Male: Yes : Yes Do You Have Access To A Gun?: No (one gun, locked in a safe, his now has the only siegel so he has no acces) Health Problems: Yes Mental Health Diagnoses: Yes Substance Use Disorders: No Previous Attempt: Yes Family History of Suicide: Yes Previous Psychiatric Hospitalization: Yes Hopelessness: No Protective Factors Assessment : Yes Responsible for Young Children: Yes Employed: No (fired due to missing work) Stable Relationships: Yes Supportive Family: Yes () Tobacco Cessation at Discharge Tobacco Cessation Medication Prescribed at Discharge: Offered & Pt Refused Discharge Data Lab Results 10/12/30/22 12/30/22 23:05 23:05 23:05 WBC 8.77 RBC 5.12 Hgb 14.8 Hct 43.1 MCV 84.2 MCH 28.9 MCHC 34.3 RDW Std Deviation 37.5 RDW Coeff of Jack 12.5 Plt Count 230 MPV 9.6 Immature Gran % (Auto) 0.1 Neut % (Auto) 45.1 Lymph % (Auto) 44.8 [place] % (Auto) 7.3 Eos % (Auto) 2.2 Baso % (Auto) 0.5 Neut # (Auto) 3.96 Lymph # (Auto) 3.93 H [place] # (Auto) 0.64 H Eos # (Auto) 0.19 Baso # (Auto) 0.04 Immature Gran # (Auto) 0.01 Sodium 138 Potassium 4.1 Chloride 104 Carbon Dioxide 29 Anion Gap 5 BUN 12 Creatinine 0.90 Est Cr Clr Drug Dosing 127.7 Est GFR ( Amer) 139.0 Est GFR (Non-Af Amer) 120.0 BUN/Creatinine Ratio 13.3 Glucose 95 Calcium 9.9 Total Bilirubin 0.4 AST 16 ALT 9 Alkaline Phosphatase 68 Total Protein 7.5 Albumin 4.9 Globulin 2.6 Albumin/Globulin Ratio 1.9 TSH 3.965 Urine Color Urine Appearance Urine pH Ur Specific [place] Urine Protein Urine Glucose (UA) Urine Ketones Urine Blood Urine Nitrite Urine Bilirubin Urine Urobilinogen Ur Leukocyte Esterase Salicylates < 3.0 L Urine Opiates Screen Ur Methadone, Qual Acetaminophen < 3 L Urine Barbiturates Ur Phencyclidine (PCP) U Amphetamin/Meth Scrn MDMA (Ecstasy) Screen U Benzodiazepines Scrn Ur Cocaine Metabolite U Marijuana (THC) Screen Ethyl Alcohol mg/dL SARS-CoV-2, RNA, NAAT 12/30/22 12/30/22 12/30/22 23:05 23:05 23:05 WBC RBC Hgb Hct MCV MCH MCHC RDW Std Deviation RDW Coeff of Jack Plt Count MPV Immature Gran % (Auto) Neut % (Auto) Lymph % (Auto) [place] % (Auto) Eos % (Auto) Baso % (Auto) Neut # (Auto) Lymph # (Auto) [place] # (Auto) Eos # (Auto) Baso # (Auto) Immature Gran # (Auto) Sodium Potassium Chloride Carbon Dioxide Anion Gap BUN Creatinine Est Cr Clr Drug Dosing Est GFR ( Amer) Est GFR (Non-Af Amer) BUN/Creatinine Ratio Glucose Calcium Total Bilirubin AST ALT Alkaline Phosphatase Total Protein Albumin Globulin Albumin/Globulin Ratio TSH Urine Color Yellow Urine Appearance Clear Urine pH 7.0 Ur Specific [place] 1.013 Urine Protein Negative Urine Glucose (UA) Negative Urine Ketones Negative Urine Blood Negative Urine Nitrite Negative Urine Bilirubin Negative Urine Urobilinogen Negative Ur Leukocyte Esterase Negative Salicylates Urine Opiates Screen Neg Ur Methadone, Qual Neg Acetaminophen Urine Barbiturates Neg Ur Phencyclidine (PCP) Neg U Amphetamin/Meth Scrn Neg MDMA (Ecstasy) Screen Neg U Benzodiazepines Scrn Neg Ur Cocaine Metabolite Neg U Marijuana (THC) Screen Neg Ethyl Alcohol mg/dL < 10.0 SARS-CoV-2, RNA, NAAT 12/30/22 23:05 WBC RBC Hgb Hct MCV MCH MCHC RDW Std Deviation RDW Coeff of Jack Plt Count MPV Immature Gran % (Auto) Neut % (Auto) Lymph % (Auto) [place] % (Auto) Eos % (Auto) Baso % (Auto) Neut # (Auto) Lymph # (Auto) [place] # (Auto) Eos # (Auto) Baso # (Auto) Immature Gran # (Auto) Sodium Potassium Chloride Carbon Dioxide Anion Gap BUN Creatinine Est Cr Clr Drug Dosing Est GFR ( Amer) Est GFR (Non-Af Amer) BUN/Creatinine Ratio Glucose Calcium Total Bilirubin AST ALT Alkaline Phosphatase Total Protein Albumin Globulin Albumin/Globulin Ratio TSH Urine Color Urine Appearance Urine pH Ur Specific [place] Urine Protein Urine Glucose (UA) Urine Ketones Urine Blood Urine Nitrite Urine Bilirubin Urine Urobilinogen Ur Leukocyte Esterase Salicylates Urine Opiates Screen Ur Methadone, Qual Acetaminophen Urine Barbiturates Ur Phencyclidine (PCP) U Amphetamin/Meth Scrn MDMA (Ecstasy) Screen U Benzodiazepines Scrn Ur Cocaine Metabolite U Marijuana (THC) Screen Ethyl Alcohol mg/dL SARS-CoV-2, RNA, NAAT NEGATIVE Hospital Course (1) Suicidal ideation: (2) Depression, unspecified: (3) Generalized anxiety disorder with panic attacks: (4) Weight loss, unintentional: (5) ADHD: Plan 01/01/2023: Decrease Buspar to 15mg BID. Continue Strattera. 12/31/2022: The patient was admitted to the [facility] (locked inpatient mental health unit) on q15 min checks (behavioral with suicide precautions) for safety. The patient will participate in group, recreational, and milieu therapies and will be offered additional individual and family sessions as clinically appropriate. -Increase Buspar to 20mg BID -Consider starting Strattera 20mg daily tomorrow with goal to eventual titrate to 40mg and then if tolerated to 80mg daily Mental Health & Subst Abuse Tx Psychiatrist Name of Psychiatrist: SWATHI Burnette Psychiatrist's Time of Appointment with Psychiatrist: [address] [place] [address] [place] [id number] Psychiatric Appointment Comment: Once insurance is approved, please reschedule appointment. Therapist Name of Therapist: [facility] Therapist's Time of Therapist Appointment: [address] [place] [id number] Therapy Appointment Comment: Once insurance is approved, please reschedule appointment. Frame Coverer Name of Frame Coverer: KIRSTY [facility] Phone Number for Frame Coverer: [phone] [facility] of App[facility]ment with Frame Coverer[facility] [address] [facility] [address] [facility] Management Appointment Comment: A blended oil field caser will follow-up with you directly. Post Discharge Appointments Primary Care Physician Name Of Family Doctor/PCP: Lisa Salcedo [facility] Time of Appointment with PCP: [address] [place] [address] [address] [place] [id number] Provider Appointment Comment: Please follow-up with your PCP as needed. Smoking Cessation Counseling Tobacco Cessation Medication Prescribed at Discharge: Offered & Pt Refused Contact Information Discharge Discharge [address]: [address] [place] [address] [place] [id number] Discharge Plan Discharge Items Patient Disposition: Home - Self-Care Reason For Visit: UNSPECIFIED DEPRESSIVE DISORDER Discharge Diagnosis: Unspecified depressive disorder, Generalized anxiety disorder with panic attacks Activity: Resume your previous activity Non-emergency contact: Primary Care Provider, Psychiatrist and Therapist Call non-emergency contact if: you have any medication questions and your symptoms worsen Follow-up/Referrals: PCP,NO [Primary Care Provider] - Diet: Regular Addtl Attending Provider Instructions: Optional mobile apps we discussed: -Suicide safety plan -Virtual Hope Box SPECIAL CARE INSTRUCTIONS: 1. Follow through with your scheduled aftercare appointments. If unable to keep an appointment, please call to reschedule. 2. Take your medication only as prescribed. Medication should not be changed or stopped without the approval of your doctor. In the event of worsening symptoms or concerns about side effects, contact your doctor immediately. 3. Utilize new healthy coping skills, anger management skills, and stress management skills learned during your hospitalization. Journal feelings and process them with a support person. Identify stressors or situations that may result in relapse, deterioration or inappropriate behaviors and develop a plan to deal with those issues. 4. If your coping skills are ineffective and you are in crisis, contact your outpatient providers for direction. If unable to reach your providers, please call the [facility] CRISIS LINE AT , go to the [facility] walk-in center at [address], [place], or go to the closest Emergency Room. 5. Avoid alcohol and un-prescribed drugs. 6. You have been provided with the Mental Health Advance Directives Pamphlet for your review. 7. Your condition is stable for discharge to outpatient level of care, but recovery is an ongoing process. Ifthoughts to harm yourself or others return, follow the safety plan developed during your stay. Planning for a safe return home includes securing weapons. Our treatment team recommends weaponsbe removed from the home until your outpatient provider reassesses your progress. In rare cases where the items themselvescannot be removed, guns and ammunitionshould be secured separatelyand keys stored by a reliable personoutside of the home. If you were admitted on an involuntary commitment, the police or other legal authorities may be involved in this process. AFTERCARE APPOINTMENTS: * Please call your insurance company prior to your scheduled appointment to confirm your aftercare providers are covered. Take your insurance information to your appointments. WHO TO CALL AND WHEN: Medical Emergencies: For questions or emergencies related to your hospital stay, please contact the Inpatient Behavioral Health Unit at [phone]. A personal security specialist is on-call 08/10 for the Behavioral Health Unit for emergencies At any time you feel your situation is an emergency, you may also call 911 immediately. [place] Crisis Line: [phone] Pending Studies at Discharge: No Stand-Alone Forms: My [facility] [employer], Smoking Cessation Medications and DC Order Prescriptions: New buspirone 15 mg Tablet 15 mg PO BID 30 Days Qty: 60 0RF atomoxetine [Strattera] 10 mg Capsule 20 mg PO QAM 30 Days Qty: 60 0RF Continued sucralfate 1 gram tablet 1 g PO QID Discontinued buspirone 10 mg tablet 10 mg PO BID Discharge Orders: Discharge Order (Routine); Ordered 01/02/23 Ordered By: Caty Davis Admission Data Admit Date/Time: 12/31/22 03:55 Attending Provider: Caty Davis Admit Provider: Caty Davis Primary Care Provider: PCP,NO Other Interventions: Discharge Summary Assessment (RN) Last Done: 01/02/23 13:13 PSY Interdisciplinary Discharge Planning Last Done: 01/02/23 14:15 Coding Level of Care Code 07508 D/C day mgmt > 30 min Diagnoses Suicidal ideation R45.851 Depression, unspecified F32.A Generalized anxiety disorder with panic attacks F41.1; F41.0 Weight loss, unintentional R63.4 ADHD F90.9
[2023-01-02] MEDS: busPIRone 15 MG TAB PO SCH (09:49)
[2023-01-02] MEDS: ATOMOXETINE HCL 10 MG CAPSULE PO SCH (09:49)
[2023-01-02] MEDS: NICOTINE 21 MG/24 HR TDSY TD SCH (09:58)
== END 2023-01-02 14:24 | disposition home or self-care (01) | DRG 881 ==
LOC: ED 22:48 → 3S 12-31 03:55